=== PATIENT | male | born 1995 | race Caucasian/White ===

== ENCOUNTER 2017-07-02 13:54 | Inpatient (IN) | payer OTHER ==
[~2017-07-02] VITALS: Ht 177.8 cm; Wt 97.2 kg
[2017-07-02 15:03] LABS: MEAN CORPUSCULAR HEMOGLOBIN 28.8 pg (27.5-34.5); MEAN CORPUSCULAR HGB CONC 33.9 g/dL (33.2-36.2); MEAN PLATELET VOLUME 8.6 fL (7.4-10.4); PLATELET COUNT 304 x10^3/uL (130-400); RED BLOOD COUNT 5.43 x10^6/uL (4.38-5.82); RED CELL DISTRIBUTION WIDTH 12.3 % (9.4-14.8)
[2017-07-02 15:16] LABS: ALANINE AMINOTRANSFERASE 47 U/L (12-78); ALBUMIN 4.5 g/dL (3.4-5.0); ANION GAP 8 mmol/L (5-15); CALCIUM 9.7 mg/dL (8.5-10.1); CHLORIDE 105 mmol/L (98-107); CREATININE 0.97 mg/dL (0.7-1.3)
[2017-07-02 15:18] LABS: ALKALINE PHOSPHATASE 79 U/L (45-117); BILIRUBIN,TOTAL 0.8 mg/dL (0.2-1.0); TOTAL PROTEIN 8.1 g/dL (6.4-8.2)
[2017-07-02 15:28] LABS: MICROSCOPIC NOT IND
[2017-07-02 15:34] LABS: BASOPHILS # (AUTO) 0.02 x10^3/uL (0-0.3); BASOPHILS % (AUTO) 0 % (0-1); EOSINOPHILS # (AUTO) 0.04 x10^3/uL (0-0.8); EOSINOPHILS % (AUTO) 0 % (1-7); LYMPHOCYTES # (AUTO) 2.97 x10^3/uL (1-6.1); LYMPHOCYTES % (AUTO) 16 % (22-44); MD SCAN; MONOCYTES # (AUTO) 0.91 x10^3/uL (0-1.4); MONOCYTES % (AUTO) 5 % (2-9); NEUTROPHILS # (AUTO) 14.34 x10^3/uL (1.8-8.0); NEUTROPHILS % (AUTO) 78 % (42-75)
[2017-07-02 15:34] LABS: CULTURE INDICATED? NO
[2017-07-02] MEDS ORDERED: SODIUM CHLORIDE FLUSH 10ML SYR IVF ONE (16:00)
[2017-07-02] MEDS ORDERED: CEFOTETAN PMX 1GM/50ML 50 ML IV ONE (18:30)
[2017-07-02] MEDS ORDERED: SODIUM CHLORIDE 0.9% 1,000 ML IV ONE (18:38)
[2017-07-02] MEDS ORDERED: OMNIPAQUE 350 MG/ML, 100ML BOTTLE ONE (18:43)
[2017-07-02] MEDS ORDERED: MORPHINE SULFATE 4 MG/ML, 1ML IVPush PRN (19:00)
[2017-07-02] MEDS ORDERED: PROMETHAZINE 25 MG/ML, 1ML IM PRN (19:00)
[2017-07-02] MEDS ORDERED: CEFOTETAN PMX 1GM/50ML 50 ML ONE (19:31)
[2017-07-02 20:15] VITALS: BP 128/65
[2017-07-02] MEDS ORDERED: BUPIVACAINE/PF 0.5% ONE (21:41)
[2017-07-02] MEDS ORDERED: EPINEPHRINE 1 MG/ML, 1ML ONE (21:41)
[2017-07-02] MEDS ORDERED: MIDAZOLAM 1 MG/ML, 2ML ONE (22:15)
[2017-07-02] MEDS ORDERED: FENTANYL PF 250 MCG/5ML ONE (22:15)
[2017-07-02] MEDS ORDERED: KETOROLAC 30 MG/1 ML ONE (22:40)
[2017-07-02] MEDS ORDERED: METOCLOPRAMIDE 5 MG/ML, 2ML ONE (22:40)
[2017-07-02] MEDS ORDERED: DEXAMETHASONE 4 MG/ML, 1ML ONE (22:40)
[2017-07-02] MEDS ORDERED: ROCURONIUM 10MG/ML,5ML ONE (22:40)
[2017-07-02] MEDS ORDERED: SUCCINYLCHOLINE 20 MG/ML, 10ML ONE (22:40)
[2017-07-02] MEDS ORDERED: CEFAZOLIN 1,000 MG ONE (22:40)
[2017-07-02] MEDS ORDERED: PROPOFOL 10 MG/ML, 20ML ONE (22:40)
[2017-07-02] MEDS ORDERED: BUPIVACAINE/PF-EPI 0.5% 1:200K IM ONE (22:53)
[2017-07-02] MEDS ORDERED: KETOROLAC 30 MG/1 ML IV PRN (23:30)
[2017-07-02] MEDS ORDERED: hydrALAzine 20 MG/ML, 1ML IV PRN (23:30)
[2017-07-02] MEDS ORDERED: MEPERIDINE/PF 25MG/0.5ML IVPush PRN (23:30)
[2017-07-02] MEDS ORDERED: ALBUTEROL SULFATE 2.5 MG/3 ML NPPB PRN (23:30)
[2017-07-02] MEDS ORDERED: PROMETHAZINE 25 MG/ML, 1ML IV PRN (23:30)
[2017-07-02] MEDS ORDERED: ONDANSETRON 2MG/ML, 2ML IVPush PRN (23:30)
[2017-07-02] MEDS ORDERED: METOCLOPRAMIDE 5 MG/ML, 2ML IV PRN (23:30)
[2017-07-02] MEDS ORDERED: OXYcodone 5 MG/5 ML ORAL.SOL UDC PO PRN (23:30)
[2017-07-02] MEDS ORDERED: HYDROmorphone 1 MG/ML, 1ML IV PRN (23:30)
[2017-07-02] MEDS ORDERED: LABETALOL 5MG/ML, 20ML IV PRN (23:30)
[2017-07-02] MEDS ORDERED: FENTANYL PF 100 MCG/2ML ONE (23:38)
[2017-07-02] MEDS ORDERED: OXYcodone 5 MG/5 ML ORAL.SOL UDC ONE (23:38)
[2017-07-02] MEDS: FENTANYL PF 100 MCG/2ML IV PRN ×3 (23:44→23:56)
[2017-07-03 00:20] VITALS: BP 122/75
[2017-07-03] MEDS ORDERED: ACETAMINOPHEN 650 MG SUPP PR PRN (05:00)
[2017-07-03] MEDS ORDERED: ONDANSETRON 2MG/ML, 2ML IV PRN (05:00)
[2017-07-03] MEDS ORDERED: hydrALAzine 20 MG/ML, 1ML IV PRN (05:00)
[2017-07-03] MEDS ORDERED: HYDROcodone/APAP 5/325 TABLET PO PRN (05:00)
[2017-07-03] MEDS ORDERED: ACETAMINOPHEN 325 MG TABLET PO PRN (05:00)
[2017-07-03 07:22] VITALS: BP 104/74
[2017-07-03] MEDS ORDERED: SODIUM CHLORIDE FLUSH 3ML SYRINGE IVF SCH (09:00)
== END 2017-07-03 09:00 | disposition home or self-care (01) | DRG 340 ==
LOC: ED 18:35 → EDIP 18:38 → 3WST 20:17
PROVIDERS: ADMIT Surgery; ATTEND Surgery
PROC: 0DTJ4ZZ Resection of Appendix, Percutaneous Endoscopic Approach (ICD-10-PCS; principal; 2017-07-02 22:00)
DX: K35.3 Acute appendicitis with localized peritonitis (principal)
CPT/HCPCS: 36415; 74177; 76857; 80053; 81003; 83690; 85025; 88304; 99285; J0171; J0690; J1100; J1885; J2250; J2704; J3010; J3490; Q9967; J0330; J2765; S0074